=== PATIENT | male | born 1990 | race Caucasian/White ===

== ENCOUNTER 2019-08-09 13:06 | Inpatient (IN) | payer OTHER, SELFPAY ==
[2019-08-09] VITALS (17 sets, daily range): BP systolic 112–135; BP diastolic 52–83; PULSE 65–80; RESP 12–34; TEMP 36.4–37.3; O2SAT 98–100; BMI 24.3
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
--- NOTE | 2019-08-09 13:27 | DI.RAD.S_ITS ---
PROCEDURE: XR SHOULDER RT MIN 2V INDICATIONS: shoulder pain after fall TECHNIQUE: 3 views of the shoulder were acquired. COMPARISON: [facility], CR, XR RIBS RT MIN 3V W CXR 1V, 08/09/2019, 12:50. FINDINGS: Bones: There is widening of the acromioclavicular joint, which measures at least 10 mm. There is also widening of the coracoclavicular interval, measuring 1.9 cm. Subtle minimally displaced posterior 2nd, 3rd, and 4th right rib fractures are present. There is no acute fracture or suspicious osseous lesion. Soft tissues: A moderate sized right-sided pneumothorax is identified. Increased density involving the upper portion of the right lung is incidentally noted. A small rounded density is seen within the right axilla which is probably overlying anterior margin of the chest. IMPRESSION: 1. Grade 4 acromioclavicular joint separation injury. 2. Nondisplaced 2nd-4th posterior right rib fractures. 3. Small to moderate size right sided pneumothorax. Note: Findings were discussed with Dr. Irving at 1430 hours (PST) on 08/09/19. Dictated by: Nirav Langley M.D. on 08/09/2019 at 13:25 Approved by: Nirav Langley M.D. on 08/09/2019 at 13:32
--- NOTE | 2019-08-09 13:27 | DI.RAD.S_ITS ---
PROCEDURE: XR RIBS RT MIN 3V W CXR 1V INDICATIONS: R lateral rib pain after fall TECHNIQUE: 2 views of the right ribs were acquired, along with a single view chest. COMPARISON: None. FINDINGS: Surgical changes and devices: None. Bones and chest wall: Nondisplaced posterior right 2nd, 3rd, and 4th rib fractures are evident. There also is acromial clavicular joint separation injury (grade 4) with widening of the acromioclavicular joint and at the coracoclavicular interval. No suspicious bony lesions. Overlying soft tissues appear unremarkable. There is a rounded metallic density evident overlying the right upper lobe/axillary region. Lungs and pleura: Increased density over the right mid lung is evident. There is a small to moderate-sized right apical pneumothorax. The aeration of the left lung is within normal limits. No large pleural effusion is identified. Mediastinum: Mediastinal contours appear normal. Heart size is normal. IMPRESSION: 1. Nondisplaced 2nd through 4th posterior right rib fractures. 2. Small to moderate sized right sided pneumothorax. 3. Acromioclavicular joint separation injury. 4. A small rounded metallic density overlying the right upper lobe may be overlying the patient. A foreign body cannot be excluded. Note: Findings were discussed with Dr. Irving at 1430 hours (PST) on 08/09/19. Dictated by: Nirav Langley M.D. on 08/09/2019 at 13:32 Approved by: Nirav Langley M.D. on 08/09/2019 at 13:34
[2019-08-09 14:38] LABS: Bacteria Urine None Seen
--- NOTE | 2019-08-09 14:40 | DI.CT.S_ITS ---
PROCEDURE: CT CHEST W CON INDICATIONS: Right-sided rib fractures with pneumothorax TECHNIQUE: After the administration of intravenous contrast, 5 mm thick sections acquired from the pulmonary apices to the posterior costophrenic angles. 1 mm axial lung, 5 mm thick coronal and sagittal reformats and 7 mm axial MIP were acquired. For radiation dose reduction, the following was used: automated exposure control, adjustment of mA and/or kV according to patient size. COMPARISON: None. FINDINGS: Image quality: Excellent. Lungs and pleura: There is a moderate-sized right and anterior pneumothorax. Atelectasis is present at the right lung base. Trace intermediate density fluid is layered within the posterior right hemithorax suggesting small hemothorax. Pulmonary contusion is noted within the peripheral aspect of the right upper lobe. No discrete laceration visualized. Mediastinum: Heart size is normal. No pericardial effusion. No mediastinal or hilar adenopathy by size criteria. Thoracic aorta and central pulmonary arteries are normal in size. Esophagus is normal in caliber. No hiatal hernia. Bones and chest wall: There are minimally displaced posterior right first-fourth rib fractures and. No other fractures or dislocations. The thyroid gland has a normal appearance. Abdomen: Visualized upper abdominal solid organs appear normal. Upper abdominal bowel loops are normal in caliber. IMPRESSION: 1. Displaced superior posterior right rib fractures, pneumothorax, pulmonary contusion, and small hemothorax. No pulmonary laceration. Dictated by: Brenna Lo M.D. on 08/09/2019 at 16:05 Approved by: Brenna Lo M.D. on 08/09/2019 at 16:10
[2019-08-09 14:44] LABS: Culture Indicated Urine Cult Not Indicated; RBC Urine 0-1/HPF (0-5/HPF); WBC Urine 0-1/HPF (0-5/HPF)
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
[2019-08-09 15:16] LABS: Add Manual Diff / Slide Review NO; Basophils Absolute Auto 0 /uL (0-100); Basophils Percent Auto 0.2 % (0-2); Eosinophils Absolute Auto 0 /uL (0-450); Eosinophils Percent Auto 0.1 % (2-4); Hematocrit 42.8 % (41-53); Hemoglobin 15.2 g/dL (13.5-17.5); Lymphocytes Absolute Auto 800 /uL (1100-4500); Lymphocytes Percent Auto 5.1 % (25-40); Mean Corpuscular HGB Conc 35.5 % (30-36); Mean Corpuscular Hemoglobin 31.3 PG (26-34); Mean Corpuscular Volume 88.2 fL (80-100); Monocytes Absolute Auto 900 /uL (0-900); Monocytes Percent Auto 5.9 % (3-14); Neutrophils Absolute Auto 13500 /uL (1500-7000); Neutrophils Percent Auto 88.7 % (50-75); Platelet Count 190 X10^3/uL (150-400); Red Blood Cell Count 4.85 X10^6/uL (4.5-5.9); Red Cell Distribution Width 12.6 % (11.6-14.8); White Blood Cell Count 15.2 X10^3/uL (4.5-11.0)
[2019-08-09 15:26] LABS: BUN Creatinine Ratio 18.8 (6-22); Blood Urea Nitrogen 15 mg/dL (9-20); Carbon Dioxide 26 mmol/L (22-32); Chloride 104 mmol/L (98-107); Estimated Glomerular Filt Rate > 60.0 mL/min (>60); Glucose 106 mg/dL (70-100); HEMOLYSIS < 15 (0-50); Potassium 3.8 mmol/L (3.4-5.1); Sodium 139 mmol/L (137-145)
[2019-08-09] MEDS: BACITRACIN OINT 0.9 GM PCKT 4 APPLIC TOP (15:26)
[2019-08-09] MEDS: SODIUM CHLORIDE 0.9% 1,000 ML 125 ML IV (15:26)
--- NOTE | 2019-08-09 18:09 | DI.RAD.S_ITS ---
PROCEDURE: XR CHEST 1V INDICATIONS: post r side pigtail cath placement TECHNIQUE: One view of the chest was acquired. COMPARISON: [facility], CT, CT CHEST W CON, 08/09/2019, 15:43. [facility], CR, XR RIBS RT MIN 3V W CXR 1V, 08/09/2019, 12:50. FINDINGS: Surgical changes and devices: There is a new pigtail pleural catheter laterally in the right hemithorax. Lungs and pleura: There is near-complete resolution of the right pneumothorax with a trace residual pneumothorax laterally. Patchy groundglass opacities are redemonstrated in the right lung consistent with pulmonary contusions as seen on the prior studies. No definite pleural effusions. Mediastinum: Mediastinal contours appear within normal limits for technique. Heart size is normal. Bones and chest wall: Mildly displaced fracture of the right 2nd rib demonstrated. Previously described fractures of the 1st, 3rd, and 4th ribs are not well seen on current study. There is a minimal amount of subcutaneous emphysema in the right chest wall. IMPRESSION: 1. New right pleural catheter with near-complete resolution of the right pneumothorax. 2. Right pulmonary contusions redemonstrated. 3. Right rib fractures redemonstrated, seen to greater advantage on the recent CT. Dictated by: Dayo Escalera M.D. on 08/09/2019 at 18:43 Approved by: Dayo Escalera M.D. on 08/09/2019 at 18:48
[2019-08-09] MEDS: MORPHINE 4 MG/ML INJ IV ×2 (18:29→20:17)
[2019-08-09] MEDS: LIDOCAINE 1% W/EPI 1 ML SUBCUT (18:29)
--- NOTE | 2019-08-09 19:42 | DI.CT.S_ITS ---
PROCEDURE: CT UE RT WO CON INDICATIONS: right AC joint separation TECHNIQUE: Noncontrast 1-1.5 mm thick sections acquired from the acromioclavicular joint to the inferior scapula, with coronal and sagittal reformatting. COMPARISON: [facility], CT, CT CHEST W CON, 08/09/2019, 15:43. [facility], CR, XR SHOULDER RT MIN 2V, 08/09/2019, 12:48. FINDINGS: Image quality: Excellent. Bones: There is separation of the acromioclavicular joint redemonstrated, with superior displacement of the distal clavicle with respect to the acromion. The coracoclavicular distance measures approximately 1.8 cm. No clavicular or acromial fracture. There are mildly displaced fractures of the right 1st through 4th posterior ribs redemonstrated. Soft tissues: There is periarticular soft tissue swelling along the right acromioclavicular joint. A small right pneumothorax is redemonstrated within the visualized right hemithorax. Multiple right pulmonary contusions are also redemonstrated. IMPRESSION: 1. Findings consistent with a probable Lilli type III acromioclavicular joint injury. 2. Fractures of the right 1st through 4th ribs redemonstrated. 3. Small right pneumothorax redemonstrated as well as multiple right pulmonary contusions. Dictated by: Dayo Escalera M.D. on 08/09/2019 at 21:01 Approved by: Dayo Escalera M.D. on 08/09/2019 at 21:10
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
[2019-08-09] MEDS: LACTATED RINGERS 1,000 ML 84 ML IV (20:17)
[2019-08-09] MEDS: LIDOCAINE PATCH 1 EACH ADH..PATCH TOP (21:00)
[2019-08-09] MEDS: OXYCODONE IR 5 MG TABLET 10 MG PO (21:00)
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
[2019-08-09 23:33] LABS: COVID19 -Nasal RAPID Negative (Negative)
--- NOTE | 2019-08-10 | DI.RAD.S_ITS ---
PROCEDURE: XR CHEST 1V INDICATIONS: chest tube change TECHNIQUE: One view of the chest was acquired. COMPARISON: [facility], CT, CT UE RT WO CON, 08/09/2019, 19:46. [facility], CR, XR CHEST 1V, 08/10/2019, 5:38. [facility], CR, XR CHEST 1V, 08/09/2019, 18:17. FINDINGS: Surgical changes and devices: Right pleural catheter is unchanged in position.. Lungs and pleura: Mild opacity in the right upper lobe peripherally corresponding to contusion seen on recent CT. No significant pleural effusions or pneumothorax. Mediastinum: Mediastinal contours appear normal. Heart size appears enlarged but is likely artifactual due to technique. Bones and chest wall: Mild separation of the right AC joint. Right-sided upper rib fractures. No suspicious bony lesions. Overlying soft tissues appear unremarkable. IMPRESSION: 1. Stable mild contusion in the right upper lobe. 2. Stable right pleural drain. No significant pneumothorax identified. Dictated by: Roge Coates M.D. on 08/10/2019 at 21:24 Approved by: Roge Coates M.D. on 08/10/2019 at 21:29
[2019-08-10] MEDS: OXYCODONE IR 5 MG TABLET 10 MG PO ×3 (01:32→20:48)
[2019-08-10 05:10] VITALS: BP 117/60; PULSE 61; RESP 16; TEMP 36.9; O2SAT 99
[2019-08-10 05:40] LABS: Add Manual Diff / Slide Review NO; Basophils Absolute Auto 0 /uL (0-100); Basophils Percent Auto 0.3 % (0-2); Eosinophils Absolute Auto 0 /uL (0-450); Eosinophils Percent Auto 0.5 % (2-4); Hematocrit 37.3 % (41-53); Hemoglobin 13.1 g/dL (13.5-17.5); Lymphocytes Absolute Auto 1400 /uL (1100-4500); Lymphocytes Percent Auto 19.7 % (25-40); Mean Corpuscular HGB Conc 35.1 % (30-36); Mean Corpuscular Hemoglobin 31.3 PG (26-34); Mean Corpuscular Volume 89.1 fL (80-100); Monocytes Absolute Auto 800 /uL (0-900); Monocytes Percent Auto 11.2 % (3-14); Neutrophils Absolute Auto 4800 /uL (1500-7000); Neutrophils Percent Auto 68.3 % (50-75); Platelet Count 169 X10^3/uL (150-400); Red Blood Cell Count 4.18 X10^6/uL (4.5-5.9); Red Cell Distribution Width 12.4 % (11.6-14.8)
[2019-08-10] MEDS: MORPHINE 4 MG/ML INJ IV (07:02)
[2019-08-10] MEDS: LACTATED RINGERS 1,000 ML 84 ML IV (07:37)
[2019-08-10] MEDS: ONDANSETRON 4 MG/2 ML INJ IV (07:37)
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
--- NOTE | 2019-08-10 07:43 | DI.RAD.S_ITS ---
PROCEDURE: XR CHEST 1V INDICATIONS: follow up for pneumothorax TECHNIQUE: One view of the chest was acquired. COMPARISON: [facility], , XR CHEST 1V, 08/09/2019, 18:17. FINDINGS: Surgical changes and devices: Right-sided pigtail chest tube is stable. Lungs and pleura: A focal opacity in the periphery of the right midlungs decreased in size compared to 08/2019 compatible with resolving pulmonary contusion. No pleural effusions or pneumothorax. Mediastinum: Mediastinal contours appear normal. Heart size is normal. Bones and chest wall: Right second rib fracture noted. Additional right-sided rib fractures identified on prior CT scan are not visualized by plain radiograph. No suspicious bony lesions. Overlying soft tissues appear unremarkable. IMPRESSION: 1. No pneumothorax. 2. Resolving right pulmonary contusion. Dictated by: Ce Coles MD, PhD on 08/10/2019 at 8:39 Approved by: Ce Coles MD, PhD on 08/10/2019 at 8:41
[2019-08-10 08:36] VITALS: BP 115/66; PULSE 66; RESP 17; TEMP 37.2; O2SAT 100
[2019-08-10] MEDS: SENNOSIDES 8.6 MG TABLET 17.2 MG PO (09:07)
[2019-08-10] MEDS: LIDOCAINE PATCH 1 EACH ADH..PATCH TOP (09:07)
[2019-08-10 11:30] VITALS: BP 115/73; PULSE 62; RESP 16; TEMP 37.1; O2SAT 98
[2019-08-10] MEDS: ACETAMINOPHEN 325 MG TABLET 650 MG PO (11:40)
--- NOTE | 2019-08-10 11:54 | PC.NURSE ---
Day shift note: Patient awake, alert, and oriented. Chest tube to right lateral chest in place, dressing CDI and pigtail secured. Chest tube to wall suction at 20 cm H2O as ordered. O2 sat 98% on RA, cont. pulse ox. NO c/o SOB. C/O discomfort to right chest lateral wall with inspiration/movement including right shoulder. RUE in arm sling for support, CMS intact. C/O head ache to frontal region, described as a throbbing ache 2/10. NO dizziness or visual changes. Dr. Townsend aware. Head ache resolved after coffee and Tylenol. RAFFAELE Gonzalez at bedside providing supportive care. Awaiting for CT scan
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
[2019-08-10 15:57] VITALS: BP 121/70; PULSE 63; RESP 18; TEMP 36.5; O2SAT 99
[2019-08-10 20:48] VITALS: BP 130/71; PULSE 62; RESP 16; TEMP 37.1; O2SAT 100
[2019-08-10] MEDS: SODIUM CHLORIDE 0.9% FLUSH 10 ML IV (20:49)
[2019-08-10 23:20] VITALS: BP 131/47; PULSE 74; RESP 18; TEMP 37.1; O2SAT 98
[2019-08-11 03:00] VITALS: BP 122/69; PULSE 70; RESP 18; TEMP 37.1; O2SAT 98
[2019-08-11] MEDS: OXYCODONE IR 5 MG TABLET 10 MG PO ×3 (03:24→17:26)
--- NOTE | 2019-08-11 07:00 | DI.RAD.S_ITS ---
PROCEDURE: XR CHEST 1V INDICATIONS: chest tube on water seal TECHNIQUE: One view of the chest was acquired. COMPARISON: [facility], , XR CHEST 1V, 08/10/2019, 20:31. FINDINGS: Surgical changes and devices: New small pigtail right sided chest tube is identified. Lungs and pleura: Increased density within the right upper lobe is present. No residual pneumothorax is evident. There is no large effusion. Otherwise, the aeration of the left lung is within normal limits. Mediastinum: Mediastinal contours appear normal. Heart size is normal. Bones and chest wall: No suspicious bony lesions. Multiple posterior superior right rib fractures are evident. Separation through acromioclavicular joint on the right is noted. Overlying soft tissues appear unremarkable. IMPRESSION: 1. Pulmonary contusion versus atelectasis within the right upper lobe is similar to the prior study. 2. Unchanged alignment of the small right-sided chest tube. The pneumothorax has resolved. Dictated by: Nirav Langley M.D. on 08/11/2019 at 7:39 Approved by: Nirav Langley M.D. on 08/11/2019 at 7:41
[2019-08-11 08:00] VITALS: BP 118/71; PULSE 66; RESP 16; TEMP 36.8; O2SAT 99
[2019-08-11] MEDS: SENNOSIDES 8.6 MG TABLET 17.2 MG PO (08:51)
[2019-08-11] MEDS: LIDOCAINE PATCH 1 EACH ADH..PATCH TOP (08:51)
[2019-08-11] MEDS: SODIUM CHLORIDE 0.9% FLUSH 10 ML IV ×2 (08:53→20:10)
[2019-08-11 12:32] VITALS: BP 126/73; PULSE 67; RESP 18; TEMP 37; O2SAT 97
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
[2019-08-11 15:59] VITALS: BP 118/70; PULSE 65; RESP 18; TEMP 36.4; O2SAT 99
[2019-08-11] MEDS: DOCUSATE 100 MG CAPSULE PO (17:54)
[2019-08-11 20:13] VITALS: BP 136/83; PULSE 78; RESP 18; TEMP 37.1; O2SAT 100
--- NOTE | 2019-08-11 21:38 | PC.NURSE ---
no SOB, RA 97%. independent in the room. pain controlled with 5mg oxycodone. lidocain patch removed at 2129.
[2019-08-12] VITALS: BP 127/71; PULSE 61; RESP 18; TEMP 36.5; O2SAT 97
[2019-08-12] MEDS: OXYCODONE IR 5 MG TABLET 10 MG PO ×2 (00:02→07:22)
[2019-08-12 05:34] VITALS: BP 117/59; PULSE 59; RESP 18; TEMP 36.6; O2SAT 95
--- NOTE | 2019-08-12 07:00 | DI.RAD.S_ITS ---
PROCEDURE: XR CHEST 1V INDICATIONS: pneumothorax, chest tube clamped TECHNIQUE: One view of the chest was acquired. COMPARISON: [facility], CT, CT CHEST W CON, 08/09/2019, 15:43. [facility], CR, XR CHEST 1V, 08/11/2019, 7:10. [facility], CR, XR CHEST 1V, 08/10/2019, 20:31. FINDINGS: Surgical changes and devices: Right-sided pigtail pleural catheter at the periphery of the right mid thorax is unchanged in position. Lungs and pleura: Subtle opacity in the right midlung field is stable to slightly decreased. Pneumothorax seen on recent CT is not well appreciated. No pleural effusion. Mediastinum: Mediastinal contours appear normal and unchanged. Heart size is normal. Bones and chest wall: No suspicious bony lesions. Overlying soft tissues appear unremarkable. IMPRESSION: Previously seen pneumothorax is not well appreciated. Stable position of the right pleural drain. Dictated by: Roge Coates M.D. on 08/12/2019 at 7:25 Approved by: Roge Coates M.D. on 08/12/2019 at 7:27
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
[2019-08-12] MEDS: DOCUSATE 100 MG CAPSULE PO (09:02)
[2019-08-12] MEDS: LIDOCAINE PATCH 1 EACH ADH..PATCH TOP (09:02)
[2019-08-12] MEDS: SENNOSIDES 8.6 MG TABLET 17.2 MG PO (09:02)
[2019-08-12 09:10] VITALS: BP 112/73; PULSE 59; RESP 16; TEMP 36.9; O2SAT 97
--- NOTE | 2019-08-12 10:30 | DI.RAD.S_ITS ---
PROCEDURE: XR CHEST 1V INDICATIONS: post pull xray for chest tube TECHNIQUE: One view of the chest was acquired. COMPARISON: [facility], , XR CHEST 1V, 08/12/2019, 7:02. FINDINGS: Surgical changes and devices: Previously seen right-sided chest tube has been removed. Lungs and pleura: Contiguous of increased density within the right upper lobe are noted, which are somewhat of previous exam, but may be less pronounced. There is no pneumothorax or pleural effusion. Mediastinum: Mediastinal contours appear normal. Heart size is normal. Bones and chest wall: No suspicious bony lesions. There continue to be multiple posterior superior right rib fractures. Recommend clavicular joint separation is noted. Overlying soft tissues appear unremarkable. IMPRESSION: 1. Resolved right pneumothorax, status post chest tube removal. 2. Mild residual pulmonary contusion versus atelectasis on the right. Dictated by: Nirav Langley M.D. on 08/12/2019 at 9:57 Approved by: Nirav Langley M.D. on 08/12/2019 at 9:58
--- NOTE | 2019-08-12 10:43 | PC.NURSE ---
Addendum entered by Marifer Tatum R.N. 08/12/19 13:18: late entry; (1200) dr. owng called back, okay to dc home. patient and spouse confirm understanding of all [employer] paperwork. they will call tomorrow to schedule appointments. script sent w/ patient. work release script also sent w/ patient. patient left by [place] with this policy writer escort to vehicle in no s/sx's of distress with rue in sling. Original Note: SHIFT NOTE: DR. WONG IN TO SEE PATIENT EARLY THIS AM. DC'D CHEST TUBE APPROX [id number]. SHE CHANGED PATIENT'S RIGHT POSTERIOR SHOULDER DRSG AND RIGHT ELBOW DRSG ABRASION SITES. DRSG TO DC'D CT TUBE SITE CDI. ERYTHEMA AND SWELLING TO RIGHT SHOULDER. LIDOCAINE PATCH PLACED. PATIENT REPORTS PAIN 1/10 THIS AM. DENIES SOB. LUNGS CLEAR THROUGHT, DIM IN BL BASES. PATIENT IN GOOD SPIRITS. REPEAT CXR OBTAINED AT 1030, AWAITING RESULTS.
== END 2019-08-12 12:00 | disposition home or self-care (01) | DRG 183 ==
LOC: ED 14:33 → AC 17:47
PROVIDERS: Admitting Provider Specialist; Emergency Provider Emergency Medicine; Referring Provider Emergency Medicine; Visit Provider Specialist
DX: S22.41XA Multiple fractures of ribs, right side, initial encounter for closed fracture (principal); S27.2XXA Traumatic hemopneumothorax, initial encounter; S27.321A Contusion of lung, unilateral, initial encounter; R51 Headache; S43.101A Unspecified dislocation of right acromioclavicular joint, initial encounter; V18.0XXA Pedal cycle driver injured in noncollision transport accident in nontraffic accident, initial encounter; Y92.838 Other recreation area as the place of occurrence of the external cause
CPT/HCPCS: 32551; 36415; 70450; 71045; 71101; 71260; 73030; 73200; 80048; 81003; 81015; 85025; 87635; 96361; 96374; 99222; 99231; 99238; 99285; J2270; J2405; Q9967